=== PATIENT | male | born 1990 | race Caucasian/White ===

== ENCOUNTER 2017-06-14 21:45 | Emergency (ER) | payer OTHER ==
[2017-06-14] MEDS ORDERED: Ibuprofen 800 MG Tab PO ONE (22:20)
--- NOTE | 2017-06-14 23:16 | EDM.PDOC ---
ED HPI GENERAL MEDICAL PROBLEM - General Chief Complaint: Lower Extremity Injury/Pain Stated Complaint: PAIN LT LEG Time Seen by Provider: 06/14/17 21:59 Source of Information: Reports: Patient History Limitations: Reports: No Limitations - History of Present Illness INITIAL COMMENTS - FREE TEXT/NARRATIVE: HISTORY AND PHYSICAL: History of present illness: [27-year-old male presents to the emergency department complaining of left ankle pain after wisting it, he describes a traumatic inversion injury earlier today.ankle has been swollenand tenderand painful to bear weight on it since the injury. No prior injury to this ankle. Patient has no bone or bleeding problems] Review of systems: As per history of present illness and below otherwise all systems reviewed and negative. Past medical history: As per history of present illness and as reviewed below otherwise noncontributory. Surgical history: As per history of present illness and as reviewed below otherwise noncontributory. Social history: No reported history of drug or alcohol abuse. Family history: As per history of present illness and as reviewed below otherwise noncontributory. Physical exam:well-appearing male no acute distress benign exam.Left ankle with soft tissue swelling lnd tenderness laterally. Nontender proximal fibulabenignknee exam and normal mid and distal foot HEENT: Normocephalic, atraumatic, pupils normal and symmetrical, supple neck, no meningismus, normal color Lungs: Normal and symmetrical chest wall excursion bilateral with no tachypnea or increased work of breathing, grossly normal chest exam Heart: No tachycardia in triage Abdomen: Normal-appearing, nondistended, no visible mass or asymmetry Pelvis: Normal-appearing Genitourinary: Deferred Rectal exam: Deferred Extremities: as above otherwise Atraumatic, normal use and range of motion, no visible evidence of gross neurovascular compromise Neuro: Awake, alert, oriented. Normal and appropriate mental status. Cranial nerves grossly unremarkable. Motor function normal. Nonfocal neurologic exam. Diagnostics: [x-ray left ankle don't fracture ,positive soft tissue swellingnterpreted by me] Therapeutics: [ibuprofen, orthopedic boot crutches Impression: [] Plan: [signs and symptoms consistent with sprain versus fracture. Neurovascularly intact with soft compartments. X-rays negative for fracture. Boot applied crutches dispensed. Weightbearing as tolerated outpatient follow-up PCP and orthopedic as needed Definitive disposition and diagnosis as appropriate pending reevaluation and review of above. 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 Left Ankle Pain Score (Numeric/FACES): 6 - Related Data Allergies Allergy/AdvReac Type Severity Reaction Status Date / Time No Known Allergies Allergy Verified 06/14/17 22:24 Home Meds: Home Meds Albuterol [Proventil HFA] 6.7 gm INH Q4H #1 inhaler 03/10/16 [Rx] Albuterol/Ipratropium [DuoNeb 3.0-0.5 MG/3 ML] 3 ml NEB Q4HRRT #60 neb 03/10/16 [Rx] Past Medical History - Past Health History Medical/Surgical History: Denies Medical/Surgical History HEENT History: Reports: None Cardiovascular History: Reports: None Respiratory History: Reports: Asthma Gastrointestinal History: Reports: None Genitourinary History: Reports: None Musculoskeletal History: Reports: None Neurological History: Reports: None Psychiatric History: Reports: None Endocrine/Metabolic History: Reports: None Hematologic History: Reports: None Immunologic History: Reports: None Oncologic (Cancer) History: Reports: None Dermatologic History: Reports: None - Infectious Disease History Infectious Disease History: Reports: None - Past Surgical History GI Surgical History: Reports: Hernia Repair/Other Social & Family History - Family History Family Medical History: Noncontributory HEENT: Reports: None Cardiac: Reports: Hypertension, [place] Respiratory: Reports: None GI: Reports: None : Reports: None OBGYN: Reports: None Musculoskeletal: Reports: None Neurological: Reports: CVA Psychiatric: Reports: None Endocrine/Metabolic: Reports: None Hematologic: Reports: None Immunologic: Reports: None Dermatologic: Reports: None Oncologic: Reports: None - Tobacco Use Smoking Status *Q: Never Smoker Second Hand Smoke Exposure: Yes - Caffeine Use Caffeine Use: Reports: Coffee, Energy Drinks, Soda - Alcohol Use Days Per Week of Alcohol Use: 0 Number of Drinks Per Day: 2 Total Drinks Per Week: 0 - Recreational Drug Use Recreational Drug Use: No Review of Systems - Review of Systems Review Of Systems: See Below (history of present illness) ED EXAM, GENERAL - Physical Exam Exam: See Below (history of present illness) Course - Vital Signs Last Recorded V/S: Last Vital Signs Temp 36.9 C 06/14/17 23:38 Pulse 100 06/14/17 23:38 Resp 16 06/14/17 23:38 BP 140/79 06/14/17 23:38 Pulse Ox 99 06/14/17 23:38 - Orders/Labs/Meds Orders: Active Orders 24 hr Category Date Time Status Ankle Min 3V Lt [CR] Stat Exams 06/14/17 22:12 Taken Foot 2V Lt [CR] Stat Exams 06/14/17 22:44 Taken Meds: Medications Discontinued Medications Generic Name Dose Route Start Last Admin Trade Name Maria E PRN Reason Stop Dose Admin Ibuprofen 800 mg 06/14/17 22:20 06/14/17 22:45 Motrin PO 06/14/17 22:21 800 mg ONETIME ONE Administration Departure - Departure Time of Disposition: 23:14 Disposition: Home, Self-Care 01 Condition: Good Clinical Impression: Left ankle sprain - Discharge Information Instructions: Crutch Use, Tydr-de-Doro, Ankle Sprain, [id number] Referrals: PCP,None [Primary Care Provider] - Forms: ED Department Discharge Additional Instructions: You have sprained her left ankle. Rest, apply ice, and elevate above your heart when ever possible for the first several days. Wear splint and use crutches for weightbearing as tolerated without pain. Follow-up with your Dr. next week for reevaluation and if there are any concerns for referral to orthopedics as needed. - My Orders Last 24 Hours: My Active Orders 06/14/17 22:12 Ankle Min 3V Lt [CR] Stat 06/14/17 22:44 Foot 2V Lt [CR] Stat - Assessment/Plan Last 24 Hours: My Active Orders 06/14/17 22:12 Ankle Min 3V Lt [CR] Stat 06/14/17 22:44 Foot 2V Lt [CR] Stat
[2017-06-15 01:26] VITALS: BP 140/79
--- NOTE | 2017-06-16 14:12 | CR ---
EXAM DATE: 06/14/17 PATIENT'S AGE: 27 Patient: ARUN GONZALEZ Facility: [place], [place] Site . Site : 1991 Study: XRay Extremity Left [id number] ankle-06/14/2017 10:25:35 PM Ordering Physician: Kurtis Wilson Final Report: Left ankle 3 VIEWS INDICATION: Injury. IMPRESSION: No visualized fracture. Alignments anatomic. Joint spaces unremarkable. Dictated by Reid Vee MD @ Jun 14 2017 11:13PM (Electronic Signature) Report Signed by Proxy. RIGO
--- NOTE | 2017-06-16 14:22 | CR ---
EXAM DATE: 06/14/17 PATIENT'S AGE: 27 Patient: ARUN GONZALEZ Facility: [place], [place] Site . Site : 1991 Study: XRay Extremity Left [id number] foot-06/14/2017 11:03:22 PM Ordering Physician: Kurtis Wilson Final Report: Left foot. 2 VIEWS INDICATION: Pain. IMPRESSION: No visualized fracture. Alignments anatomic. No additional osseous lesion. Dictated by Reid Vee MD @ Jun 14 2017 11:31PM (Electronic Signature) Report Signed by Proxy. RIGO
== END 2017-06-14 23:37 | disposition home or self-care (01) ==
LOC: MW.ED 21:45
DX: S93.402A Sprain of unspecified ligament of left ankle, initial encounter (principal); X50.1XXA Overexertion from prolonged static or awkward postures, initial encounter
CPT/HCPCS: 73610; 73620; 99283; A9270